=== PATIENT | male | born 1995 | race Caucasian/White ===

== ENCOUNTER 2016-12-09 11:36 | Emergency (ER) | payer MEDICAID ==
[2016-12-09 12:44] VITALS: BP 135/75
[2016-12-10 13:56] LABS: Herpes Simplex Virus I IgG AB Negative (Negative); Herpes Simplex Virus II IgG AB Negative (Negative)
[2016-12-11 01:06] LABS: Herpes Simplex 1&2 IgM IFA Negative (Negative)
--- NOTE | 2017-01-09 23:13 | UC ---
Alba Glaser Matthew, scribed for Disha Jacobson MD on 12/09/16 at 1226 . Complaint Male HPI - HPI Summary HPI Summary: A 21 y/o male presents to with sores in the pubic region since 12/06/16 that worsened today. Associated symptoms include body aches. The spots are painful and itchy to the touch. He denies urinary symptoms, increased urgency, fever, cough, and penile discharge. He's also c/o of blister sores in his mouth and has not had these in the past. The patient smokes 2-3 cigarettes per day. His last tetanus shot was 2 years ago. He also had an embedded tick on his scrotum in October. No Hx of herpes. - History of Current Complaint Chief Complaint: UCGU Stated Complaint: PERSONAL Hx Obtained From: Patient Onset/Duration: Gradual Onset, Lasting Days, Still Present Timing: Constant Severity Initially: Mild Severity Currently: Mild Location: Penis Aggravating Factor(s): Palpation Alleviating Factor(s): Nothing Associated Signs And Symptoms: Negative: Penile Swelling, Penile Discharge - Allergies/Home Medications Allergies/Adverse Reactions: Allergies Allergy/AdvReac Type Severity Reaction Status Date / Time Albuterol Allergy Blisters Verified 04/08/16 12:10 PMH/Surg Hx/FS Hx/Imm Hx Endocrine History Of: Denies: Diabetes Respiratory History Of: Denies: Asthma - Surgical History Surgical History: Yes Surgery Procedure, Year, and Place: right collar bone was shattered/ reconstruction done when pt was 15 years old - Family History Known Family History: Positive: Other - cancer Negative: Diabetes - Social History Alcohol Use: Occasionally Substance Use Type: None Smoking Status (MU): Light Every Day Tobacco Smoker Amount Used/How Often: 1/2PPD Household Exposure Type: Cigarettes Review of Systems Constitutional: Negative Skin: Negative Eyes: Negative ENT: Negative Respiratory: Negative Cardiovascular: Negative Gastrointestinal: Negative Genitourinary: Other - sores in the gential region Motor: Negative Neurovascular: Negative Musculoskeletal: Myalgia - body aches Neurological: Negative Psychological: Negative All Other Systems Reviewed And Are Negative: Yes Physical Exam Triage Information Reviewed: Yes Appearance: Well-Nourished Vital Signs: Initial Vital Signs Temp 99.6 F 12/09/16 12:02 Pulse 87 12/09/16 12:02 Resp 18 12/09/16 12:02 BP 135/75 12/09/16 12:02 Pulse Ox 98 12/09/16 12:02 Vital Signs Reviewed: Yes Eyes: Positive: Conjunctiva Clear ENT: Positive: Other: - ulcers around the gum line of teeth number 10&11 Neck: Positive: Supple, Nontender Respiratory: Positive: No respiratory distress, No accessory muscle use Cardiovascular: Positive: RRR, No Murmur, Pulses Normal Abdomen Description: Positive: Nontender, No Organomegaly, Soft Musculoskeletal: Positive: Strength Intact, ROM Intact Neurological Exam: Normal - nonfocal, grossly intact Psychological Exam: Normal - conversing easily and appropriately Complaint Male Course/Dx - Course Course Of Treatment: Reviewed need for f/u and coa. Some cellulitis, sores unclear - will rx for genital warts (likely). Rx valtrex as well (will check antibodies in the meantime). Questions answered as posed - Differential Dx/Diagnosis Provider Diagnoses: genital sores / wart. cellulitis Discharge - Discharge Plan Condition: Stable Disposition: HOME Prescriptions: DOXYcycline CAP(*) [DOXYcycline 100MG CAP(*)] 100 mg PO BID #14 cap Podofilox [Condylox] 0.5 % EX BID #1 tube ValACYclovir (*) [Valtrex 1 GM(*)] 1 gm PO BID #20 tab Patient Education Materials: Genital Warts (ED), Cellulitis (ED) Forms: *Work Release Referrals: Mark JOE,Jeffrey Bruno [Primary Care Provider] - Additional Instructions: Follow up with your primary care physician - please schedule follow up for 1-2 weeks. Seek medical attention sooner for worse or new problems. Avoid sexual relations until symptoms gone, results available, and partner has been checked. You have blood tests for herpes virus (1 and 2) pending. Lesions are unclear but suspicious for a wart-causing virus. This can be treated, but important that you be rechecked by primary care provider. What are cold sores? Cold sores are painful blisters that form on or near the lips and inside the mouth. They are caused by an infection with a virus called "herpes simplex virus." There are two types of herpes virus. Type 1 causes most cases of cold sores. Type 2, also called genital herpes, usually affects the penis or vagina. EDUCATIONAL MATERIAL Cold sores are also known as fever blisters. What are the symptoms of cold sores? The symptoms are different depending on whether it is the first time a person is getting cold sores. The first attack of cold sores usually happens during childhood. The first time a person gets cold sores, the symptoms can include: Painful blisters on the lips, mouth, nose, or throat, which eventually pop and form scabs (picture 1) Mouth and throat pain Swelling in the neck Fever, body aches, and feeling ill After the first time, pain and blisters can come back, but the other symptoms do not usually happen again. Plus, the symptoms are usually milder and don't last as long. When symptoms first occur, they can last 10 to 14 days. Later, if they come back , they can last 8 days or less. Some people can tell when their cold sores are going to come back. They feel pain, burning, tingling, or itching on their lips about a day before blisters form. People sometimes confuse cold sores with canker sores. But canker sores are different. Canker sores are painful red or white sores, but they do not usually form blisters or scab over. Canker sores can form in your mouth and on your tongue. Doctors do not know what causes canker sores. Why did I get a cold sore? The virus that causes cold sores spreads easily from person to person. You might have caught it from an infected person if the 2 of you shared a fork or knife, kissed, or had some other type of close contact. People who give oral sex to people with genital herpes can get cold sores on their mouth. Should I see a doctor or nurse? See your doctor or nurse if your symptoms are severe or if they keep you from swallowing fluids. Is there a test for cold sores? Yes, your doctor or nurse can take some fluid from a cold sore and check it for the herpes virus. But that is not usually necessary. In most cases, doctors can diagnose cold sores just by looking at them. How are cold sores treated? Most people need treatment the first time they have cold sores. But people who have had cold sores before or who have mild symptoms do not always need treatment. For those who do need treatment, it can come in two forms: Some treatments help the body fight the herpes virus. These are called "antiviral medicines." They reduce symptoms and shorten the amount of time symptoms last. These medicines work best if they are started as soon as possible after symptoms begin. Most people do not need these medicines. Some treatments treat just the pain and discomfort of cold sores without affecting the virus. These treatments include pain-relieving pills and gels that go on the mouth. Many of these treatments are sold without a prescription. Treatments can help ease the symptoms of cold sores, but no treatment can cure cold sores for good. Once you have the virus that causes cold sores, you will have it for the rest of your life. That means that cold sores can keep coming back. Luckily, symptoms usually get milder with time. Is there anything I can do on my own to feel better? Some people find that pain goes down if they suck on ice or popsicles. Can cold sores be prevented? If you have frequent, painful outbreaks of cold sores, your doctor or nurse might give you an antiviral medicine to take every day to prevent new symptoms. But most people do not need this kind of treatment. To protect other people, when you have cold sores do NOT: Kiss anyone Share forks, knives, spoons, glasses, towels, lip balm, or razors Give anyone oral sex The documentation as recorded by the Alba reeves Matthew accurately reflects the service I personally performed and the decisions made by me, Disha Jacobson MD.
== END 2016-12-09 12:51 | disposition home or self-care (01) ==
LOC: UCEAST 11:36
DX: N50.9 Disorder of male genital organs, unspecified (principal); A63.0 Anogenital (venereal) warts; N49.9 Inflammatory disorder of unspecified male genital organ; Z88.8 Allergy status to other drugs, medicaments and biological substances; F17.210 Nicotine dependence, cigarettes, uncomplicated
CPT/HCPCS: 86694; 86695; 86696; 99212; G0463

== ENCOUNTER 2017-02-05 17:08 | Emergency (ER) | payer MEDICAID ==
[2017-02-05 17:23] VITALS: BP 106/71
[2017-02-05] MEDS ORDERED: Ibuprofen TAB* 600 MG PO ONE (17:40)
--- NOTE | 2017-02-05 17:51 | UC ---
Hand/Wrist HPI - HPI Summary HPI Summary: Pain on R hand around 4th and 5th knuckles since falling down 4-5 stairs while holding something about 2.5 hours ago. Swelling, stiffness, no prior fx or surgery. - History Of Current Complaint Chief Complaint: UCUpperExtremity Stated Complaint: HAND INJURY Time Seen by Provider: 02/05/17 17:31 Hx Obtained From: Patient ?: No Onset/Duration: Sudden Onset Severity Initially: Moderate Severity Currently: Moderate Character Of Pain: Dull, Aching Aggravating Factor(s): Movement Alleviating: Elevation Associated Signs And Symptoms: Positive: Swelling Related History: Dominant Hand Right - Allergies/Home Medications Allergies/Adverse Reactions: Allergies Allergy/AdvReac Type Severity Reaction Status Date / Time Albuterol Allergy Blisters Verified 02/05/17 17:23 PMH/Surg Hx/FS Hx/Imm Hx Previously Healthy: Yes - Surgical History Surgical History: Yes Surgery Procedure, Year, and Place: right collar bone was shattered/ reconstruction done when pt was 15 years old - Family History Known Family History: Positive: None, Other - cancer Negative: Diabetes - Social History Occupation: Employed Full-time Lives: With Family Alcohol Use: Occasionally Substance Use Type: None Smoking Status (MU): Current Every Day Smoker Amount Used/How Often: 1/2PPD Household Exposure Type: Cigarettes Review of Systems Constitutional: Negative Skin: Negative Eyes: Negative ENT: Negative Respiratory: Negative Cardiovascular: Negative Gastrointestinal: Negative Genitourinary: Negative Motor: Negative Neurovascular: Negative Musculoskeletal: Arthralgia, Decreased ROM, Edema Neurological: Negative Psychological: Negative All Other Systems Reviewed And Are Negative: Yes Physical Exam Triage Information Reviewed: Yes Appearance: Well-Appearing, No Pain Distress, Well-Nourished Vital Signs: Initial Vital Signs Temp 98.8 F 02/05/17 17:18 Pulse 87 02/05/17 17:18 Resp 12 02/05/17 17:18 BP 106/71 02/05/17 17:18 Pulse Ox 100 02/05/17 17:18 Vital Signs Reviewed: Yes Eye Exam: Normal Eyes: Positive: Conjunctiva Clear ENT Exam: Normal ENT: Positive: Normal ENT inspection, Hearing grossly normal, Pharynx normal, TMs normal Dental Exam: Normal Neck exam: Normal Neck: Positive: Supple, Nontender, No Lymphadenopathy Respiratory Exam: Normal Respiratory: Positive: Chest non-tender, Lungs clear, Normal breath sounds, No respiratory distress, No accessory muscle use Cardiovascular Exam: Normal Cardiovascular: Positive: RRR, No Murmur Musculoskeletal: Positive: ROM Limited @ - R apn, Edema @ - with tenderness, over R 4th and 5th MCPs Neurological Exam: Normal Neurological: Positive: Alert Psychological Exam: Normal Skin Exam: Normal Hand/Wrist Course/Dx - Differential Dx/Diagnosis Provider Diagnoses: R hand contusion. R hand sprain. R wrist sprain Discharge - Discharge Plan Condition: Stable Disposition: HOME Patient Education Materials: Hand Sprain (ED), Wrist Sprain (ED) Forms: *Gen. Provider Communication, *Work Release Referrals: Mariaa Martell MD [Medical Doctor] - 2 Weeks
--- NOTE | 2017-02-05 17:57 | RAD ---
INDICATION: Pain overlying the fourth and fifth metacarpal phalangeal joints after a fall COMPARISON: None. TECHNIQUE: 4 views of the right hand and 3 views of the right wrist were obtained. FINDINGS: The adequately corticated bones are in normal alignment. No significant focal osseous abnormality or fracture is seen. Joint spaces appear maintained. IMPRESSION: No radiographically apparent fracture or dislocation of the right hand or wrist. If the patient's symptoms persist, follow-up imaging is recommended.
== END 2017-02-05 18:15 | disposition home or self-care (01) ==
LOC: UCEAST 17:08
DX: S60.221A Contusion of right hand, initial encounter (principal); S63.91XA Sprain of unspecified part of right wrist and hand, initial encounter; W10.9XXA Fall (on) (from) unspecified stairs and steps, initial encounter; Y93.9 Activity, unspecified; Y92.9 Unspecified place or not applicable; Y99.9 Unspecified external cause status; Z72.0 Tobacco use
CPT/HCPCS: 99212; A9270-GY; G0463

== ENCOUNTER → 2018-08-25 12:08 | Emergency (ER) | payer OTHER ==
[~2018-08-25 12:08] MED LIST: Ketorolac INJ* 30 MG/ML 1 ML VIAL IV PUSH ONE; Metoclopramide IV* 5 MG/ML 2 ML VIAL IV ONE; NS 0.9% 1000 ML** 1,000 ML IV ONE; diPHENhydraMINE IV* 50 MG/ML 1 ml VIAL (BENADRYL) IV ONE
--- NOTE | 2018-08-25 13:00 | ED ---
Headache - HPI Summary HPI Summary: A 22 y/o male presents to [facility] with a chief complaint of a headache since 07: 30 08/25/18. Per triage note, "Pt woke up this AM with c/o base of neck pain, headache, dizziness and slurring speech per pts GF. Pt and GF deny injury. During assessment, pt does not have slurred speech or any difficulty with memory. Pt reports severe headache with no changes in vision, slight dizziness upon moving, nausea. Pt states that it feels like a migraine. Took 2x 800mg Ibuprofen this AM." He rates his pain as an 8/10 in severity. He reports that this is his worst headache ever. He denies any trauma or fall. Per patient's girlfriend, the patient had trouble remembering his date at triage. The patient claims that he does not usually get migraines. The patient denies cough. He reports a head bleed due to playing football in high school. He smokes 1/2 ppd but denies drug use. He is allergic to albuterol claiming that he gets blisters. - History Of Current Complaint Chief Complaint: EDHeadache Stated Complaint: NECK/HEAD PAIN/DIZZINESS/SLURRED SPEECH Time Seen by Provider: 08/25/18 12:44 Hx Obtained From: Patient, Family/Motorcycle Builder - girlfriend Onset/Duration: Sudden Onset, Started hours ago, Still Present Initially Headache Was: "Worst Headache Ever", Initial Pain Scale(0-10)= - 8, Severe Currently Pain Is: Current Pain Scale(0-10)= - 8, Severe Timing: Constant, Hours Character: Migraine Location of Headache: Diffuse Aggravating Factor: Other - positive: movement Allevating Factors: Nothing Associated Signs And Symptoms: Negative - fever, visual changes, Nausea, Neck Pain - Allergies/Home Medications Allergies/Adverse Reactions: Allergies Allergy/AdvReac Type Severity Reaction Status Date / Time albuterol Allergy See Comment Verified 08/25/18 12:16 Home Medications: Home Medications NK [No Home Medications Reported] 08/25/18 [History Confirmed 08/25/18] PMH/Surg Hx/FS Hx/Imm Hx Endocrine/Hematology History: Denies: Hx Diabetes Respiratory History: Denies: Hx Asthma, Hx Seasonal Allergies Sensory History: Reports: Hx Contacts or Glasses Opthamlomology History: Reports: Hx Contacts or Glasses - Surgical History Surgery Procedure, Year, and Place: right collar bone was shattered/ reconstruction done when pt was 15 years old - Immunization History Date of Tetanus Vaccine: UTD Date of Influenza Vaccine: unknown Infectious Disease History: No Infectious Disease History: Denies: Traveled Outside the [place] in Last 30 Days - Family History Known Family History: Positive: Other - cancer Negative: Diabetes - Social History Alcohol Use: Occasionally Substance Use Type: Reports: None Smoking Status (MU): Current Every Day Smoker Amount Used/How Often: 1/2PPD Review of Systems Negative: Fever Eyes: Negative - visual changes Negative: Cough Positive: Nausea Positive: Other - Positive: neck pain Neurological: Other - positive: dizziness Positive: Headache All Other Systems Reviewed And Are Negative: Yes Physical Exam - Summary Physical Exam Summary: GENERAL: Patient is a well-developed and nourished M who is lying comfortable in the stretcher. Patient is not in any acute respiratory distress. HEAD AND FACE: Normocephalic EYES: PERRLA, EOMI x 2. EARS: Hearing grossly intact. MOUTH: Oropharynx within normal limits. NECK: Supple, trachea is midline, no adenopathy, no JVD, no carotid bruit. CHEST: Symmetric, no tenderness at palpation LUNGS: Clear to auscultation bilaterally. No wheezing or crackles. CVS: Regular rate and rhythm, S1 and S2 present, no murmurs or gallops appreciated. ABDOMEN: Soft, non-tender. Bowel sounds are normal. No abdominal abnormal pulsations. EXTREMITIES: Full ROM in all major joints, no edema, no cyanosis or clubbing. NEURO: Alert and oriented x 3. No acute neurological deficits. Speech is normal and follows commands. SKIN: Dry and warm Neuro exam extended: Cranial nerves II-XII grossly intact, no dysmetria finger to nose, nml heel to myles Triage Information Reviewed: Yes Vital Signs On Initial Exam: Initial Vitals Temp Pulse Resp BP Pulse Ox 98.1 F 82 19 134/96 99 08/25/18 12:11 08/25/18 12:11 08/25/18 12:11 08/25/18 12:11 08/25/18 12:11 Vital Signs Reviewed: Yes - Aylin Coma Scale Best Eye Response: 4 - Spontaneous Best Motor Response: 6 - Obeys Commands Best Verbal Response: 5 - Oriented Coma Scale Total: 15 Diagnostics - Vital Signs Vital Signs Temp Pulse Resp BP Pulse Ox 08/25/18 12:11 98.1 F 82 19 134/96 99 - Laboratory Result Diagrams: 08/25/18 13:04 08/25/18 13:04 Lab Statement: Any lab studies that have been ordered have been reviewed, and results considered in the medical decision making process. - CT Brain CT Interpretation Completed By: Radiologist Summary of CT Findings: No acute intracranial pathology. ED physician has reviewed this imaging report. Re-Evaluation - Re-Evaluation Second Eval Re-Evaluation Time: 14:00 Change: Improved Comment: Patient is feeling better. I explained that even though he is feeling better that does not rule out a subarachnoid hemorrhage or meningitis He refused a lumbar puncture. First Eval Re-Evaluation Time: 13:41 Change: Unchanged Comment: Patient still feels the same. Third Eval Re-Evaluation Time: 14:37 Change: Unchanged Comment: Patient still reports a GOOD. He will be given toradol. Headache Course/Dx - Course Course Of Treatment: A 22 y/o male presents to [facility] with a chief complaint of a headache since 07:30 08/25/18. Workup is unremarkable. The physical exam was unremarkable. In the ED course he was given Reglan IV, Benadryl IV and Toradol IV. His Brain CT was negative. Lab results obtained and are WNL. Influenza A and Influenza B are negative. Upon re-eval patient is feeling better. I explained that even though he is feeling better that does not rule out a subarachnoid hemorrhage or meningitis. He refused a lumbar puncture. I discussed results with patient and he reports feeling better. He is hemodynamically stable and safe for discharge. Strict return precautions given and he will otherwise follow up with his PCP. The patient will be discharged. He is agreeable with this plan. - Diagnoses Provider Diagnoses: Headache Discharge - Sign-Out/Discharge Documenting (check all that apply): Patient Departure - DC Patient Received Moderate/Deep Sedation with Procedure: No - Discharge Plan Condition: Stable Disposition: HOME Referrals: Mark JOE,Jeffrey Bruno [Primary Care Provider] - (1-3 days) Additional Instructions: Follow up with your primary care physician in 1-3 days. RETURN TO THE EMERGENCY DEPARTMENT FOR CHANGING OR WORSENING SYMPTOMS. - Billing Disposition and Condition Condition: STABLE Disposition: Home - Attestation Statements Document Initiated by Scribe: Yes Documenting Scribe: Frandy Gongora Provider For Whom Scribe is Documenting (Include Credential): Kodi Gould MD Scribe Attestation: I, Frandy Gongora, scribed for Kodi Gould MD on 08/25/18 at 1758. Scribe Documentation Reviewed: Yes Provider Attestation: The documentation as recorded by the haideribeFrandy accurately reflects the service I personally performed and the decisions made by me, Deya Gould MD Status of Scribe Document: Viewed
[2018-08-25 13:13] LABS: ABS Basophils 0 10^3/ul (0-0.2); ABS Eosinophils 0 10^3/ul (0-0.6); ABS Lymphocytes 0.9 10^3/ul (1.0-4.8); ABS Monocytes 0.5 10^3/ul (0-0.8); ABS Neutrophils 10.5 10^3/ul (1.5-7.7); ABS Nucleated RBC 0 10^3/ul; Eosinophil % 0.1 %; Hematocrit 46 % (42-52); Hemoglobin 15.7 g/dl (14.0-18.0); Lymphocyte % 7.3 %; Mean Corpuscular HGB Conc 34 g/dl (31-36); Mean Corpuscular Hemoglobin 33 pg (27-31); Mean Corpuscular Volume 96 fL (80-94); Mean Platelet Volume 9.2 fL (7.4-10.4); Nucleated Red Blood Cells % 0; Platelet Count 181 10^3/ul (150-450); Red Cell Distribution Width 13 % (10.5-15); White Blood Count 11.9 10^3/ul (3.5-10.8)
[2018-08-25 13:21] LABS: Activated Partial Thrombo Time 31.3 seconds (26.0-36.3); INR 0.91 (0.77-1.02)
[2018-08-25 13:32] LABS: Albumin 4.7 g/dL (3.2-5.2); Albumin/Globulin Ratio 1.8 (1-3); BUN/Creatinine Ratio 18.2 (8-20); CRP High Sensitivity 2.94 mg/L (<2.00); Calcium 9.8 mg/dL (8.6-10.3); EGFR African American 182.6 (>60); EGFR Non-African American 150.9 (>60); Globulin 2.6 g/dL (2-4); Potassium 4.2 mmol/L (3.5-5.0); Total Bilirubin 0.4 mg/dL (0.2-1.0); Total Protein 7.3 g/dL (6.4-8.9)
[2018-08-25 14:27] LABS: Influenza A Molecular NEGATIVE (Negative); Influenza B Molecular NEGATIVE (Negative)
[2018-08-25 14:50] VITALS: BP 119/66
[2018-08-25 14:50] LABS: Erythrocyte Sed Rate 4 mm/Hr (0-14)
== END | disposition home or self-care (01) ==
LOC: ED 12:08
DX: R51 Headache (principal); F17.210 Nicotine dependence, cigarettes, uncomplicated
CPT/HCPCS: 36415; 70450; 80053; 85025; 85610; 85652; 85730; 86141; 96361; 96374; 96375; 99283; J1200; J1885; J2765

== ENCOUNTER 2018-08-26 05:24 | Emergency (ER) | payer OTHER ==
[2018-08-26] MEDS ORDERED: LORazepam INJ* 2 MG/ML 1 ML VIAL IV PUSH ONE (06:16)
[2018-08-26] MEDS ORDERED: Ketorolac INJ* 30 MG/ML 1 ML VIAL IV PUSH ONE (06:16)
[2018-08-26] MEDS ORDERED: NS 0.9% 1000 ML** 1,000 ML IV ONE (06:17)
--- NOTE | 2018-08-26 06:17 | ED ---
Headache - HPI Summary HPI Summary: Pt. is a 22 y.o male who presents to the ER for headache. Patient was seen in the ER yesterday for similar symptoms. Patient denies history of migraines or headaches. Patient states headache started yesterday shortly after waking up. Seen in ER yesterday and had blood work and a CAT scan which were unremarkable. ER physician did discuss lumbar puncture to rule out subarachnoid which patient declined. Patient was feeling better at time of discharge after migraine cocktail. Patient states headache returned today and presents for reevaluation. Patient notes that headache starts in his neck and radiates up his scalp to his eyes. He notes he started having a lot of neck tension recently. He denies any injuries or falls. He denies numbness, tingling, weakness, vision changes, fever, sore throat, cough, photophobia, nausea or vomiting. Patient otherwise denies past medical history. Symptoms are moderate in severity. - History Of Current Complaint Chief Complaint: EDHeadache Stated Complaint: HEADACHE Time Seen by Provider: 08/26/18 05:52 Hx Obtained From: Patient - Allergies/Home Medications Allergies/Adverse Reactions: Allergies Allergy/AdvReac Type Severity Reaction Status Date / Time albuterol Allergy See Comment Verified 08/26/18 05:39 PMH/Surg Hx/FS Hx/Imm Hx Previously Healthy: Yes Endocrine/Hematology History: Denies: Hx Diabetes Respiratory History: Denies: Hx Asthma, Hx Seasonal Allergies Sensory History: Reports: Hx Contacts or Glasses Opthamlomology History: Reports: Hx Contacts or Glasses - Surgical History Surgery Procedure, Year, and Place: right collar bone was shattered/ reconstruction done when pt was 15 years old - Immunization History Date of Tetanus Vaccine: UTD Date of Influenza Vaccine: unknown Infectious Disease History: No Infectious Disease History: Denies: Traveled Outside the [place] in Last 30 Days - Family History Known Family History: Positive: Other - cancer Negative: Diabetes - Social History Occupation: Employed Full-time Lives: With Family Alcohol Use: Occasionally Substance Use Type: Reports: None Smoking Status (MU): Current Every Day Smoker Amount Used/How Often: 1/2PPD Review of Systems Constitutional: Negative Negative: Fever, Chills Eyes: Negative ENT: Negative Cardiovascular: Negative Respiratory: Negative Gastrointestinal: Negative Negative: Vomiting, Nausea Positive: Other - neck pain Skin: Negative Positive: Headache. Negative: Weakness, Paresthesia, Numbness, Syncope, Slurred Speech All Other Systems Reviewed And Are Negative: Yes Physical Exam Triage Information Reviewed: Yes Vital Signs On Initial Exam: Initial Vitals Temp Pulse Resp BP Pulse Ox 97.4 F 80 16 138/92 98 08/26/18 05:35 08/26/18 05:35 08/26/18 05:35 08/26/18 05:35 08/26/18 05:35 Vital Signs Reviewed: Yes Appearance: Positive: Well-Appearing - Pt. lying in bed in NAD. S.O. present. Skin: Positive: Warm, Dry Head/Face: Positive: Normal Head/Face Inspection Eyes: Positive: Normal, EOMI Neck: Positive: Supple, Other: - No nuchal rigidity. Pain along right trapizius muscle. Respiratory/Lung Sounds: Positive: Clear to Auscultation, Breath Sounds Present Cardiovascular: Positive: Normal, RRR Musculoskeletal: Positive: Normal, Strength/ROM Intact, Other - 5/5 strength in bilateral UEs and LEs. Neurological: Positive: Normal, Alert, Oriented to Person Place, Time, CN Intact II-III, Normal Gait, Finger to Nose - normal, Facial Symmetry, Speech Normal. Negative: Slurred Speech, Pronator Drift Present Psychiatric: Positive: Affect/Mood Appropriate - [place] Coma Scale Best Eye Response: 4 - Spontaneous Best Motor Response: 6 - Obeys Commands Best Verbal Response: 5 - Oriented Coma Scale Total: 15 Diagnostics - Vital Signs Vital Signs Temp Pulse Resp BP Pulse Ox 08/26/18 06:00 81 98 08/26/18 05:43 71 122/81 98 08/26/18 05:42 77 98 08/26/18 05:35 97.4 F 80 16 138/92 98 - Laboratory Result Diagrams: 08/26/18 06:24 08/26/18 06:24 Lab Statement: Any lab studies that have been ordered have been reviewed, and results considered in the medical decision making process. Headache Course/Dx - Course Course Of Treatment: Patient presenting for ongoing headache. He has no neurological deficits on exam. Negative head CT yesterday. Patient's headache seems to be consistent with a tension headache. He was given a dose of Ativan for muscle relaxation and Toradol. Basic blood work is unremarkable including normal CRP. On reexamination patient states he is feeling much better and would like to be discharged home. Prescription for Flexeril and naproxen given. Advised to apply warm compresses to neck. To call family doctor today for close follow-up appointment. Return to the ER if symptoms change or worsen. Patient understands and agrees with plan. - Diagnoses Differential Diagnosis/HQI/PQRI: Epidural Hematoma, Meningitis, Migraine, Tension Headache, Viral Syndrome Provider Diagnoses: Tension headache Discharge - Sign-Out/Discharge Documenting (check all that apply): Patient Departure Patient Received Moderate/Deep Sedation with Procedure: No - Discharge Plan Condition: Improved Disposition: HOME Prescriptions: Cyclobenzaprine TAB* [Flexeril 10 MG TAB*] 10 mg PO TID PRN #9 tab PRN Reason: Pain Naproxen [Naproxen 500 mg tab] 500 mg PO BID #20 tablet Patient Education Materials: Tension Headache (ED), Muscle Spasm (ED) Forms: *School Release Referrals: Mark JOE,Jeffrey Bruno [Primary Care Provider] - Additional Instructions: Call PCP today to schedule a follow up appointment Take medication as directed Apply warm compresses Gentle massage Return to ER if symptoms change or worsen - Billing Disposition and Condition Condition: IMPROVED Disposition: Home
[2018-08-26 06:29] LABS: ABS Basophils 0 10^3/ul (0-0.2); ABS Eosinophils 0.1 10^3/ul (0-0.6); ABS Lymphocytes 1.6 10^3/ul (1.0-4.8); ABS Monocytes 0.8 10^3/ul (0-0.8); ABS Neutrophils 8.5 10^3/ul (1.5-7.7); ABS Nucleated RBC 0 10^3/ul; Eosinophil % 0.9 %; Hematocrit 42 % (42-52); Hemoglobin 14.7 g/dl (14.0-18.0); Lymphocyte % 14.5 %; Mean Corpuscular HGB Conc 35 g/dl (31-36); Mean Corpuscular Hemoglobin 34 pg (27-31); Mean Corpuscular Volume 96 fL (80-94); Mean Platelet Volume 9.3 fL (7.4-10.4); Nucleated Red Blood Cells % 0; Platelet Count 187 10^3/ul (150-450); Red Blood Count 4.39 10^6/ul (4.00-5.40); Red Cell Distribution Width 13 % (10.5-15); White Blood Count 11.1 10^3/ul (3.5-10.8)
[2018-08-26 06:47] LABS: Albumin 4.3 g/dL (3.2-5.2); Albumin/Globulin Ratio 1.8 (1-3); BUN/Creatinine Ratio 16.4 (8-20); C Reactive Protein 3.33 mg/L (<8.01); Calcium 9.3 mg/dL (8.6-10.3); EGFR African American 179.5 (>60); EGFR Non-African American 148.3 (>60); Globulin 2.4 g/dL (2-4); Potassium 4.2 mmol/L (3.5-5.0); Total Bilirubin 0.3 mg/dL (0.2-1.0); Total Protein 6.7 g/dL (6.4-8.9)
[2018-08-26 08:02] VITALS: BP 113/71
== END 2018-08-26 08:02 | disposition home or self-care (01) ==
LOC: ED 05:24
DX: G44.209 Tension-type headache, unspecified, not intractable (principal); Z88.8 Allergy status to other drugs, medicaments and biological substances; F17.200 Nicotine dependence, unspecified, uncomplicated
CPT/HCPCS: 36415; 80053; 85025; 86140; 96374; 96375; 99282; J1885; J2060

== ENCOUNTER 2018-09-02 07:52 | Emergency (ER) | payer OTHER ==
[2018-09-02] MEDS ORDERED: NS 0.9% 1000 ML** 1,000 ML IV ONE (08:11)
[2018-09-02] MEDS ORDERED: diPHENhydraMINE PO* 25 MG PO ONE (08:11)
[2018-09-02] MEDS ORDERED: PROCHLORPERAZINE INJ 5 MG/ML 2 ML VIAL IV ONE (08:11)
--- NOTE | 2018-09-02 08:12 | ED ---
Headache - HPI Summary HPI Summary: 22-year-old male presents with headache today. He states that he woke up with a headache. He states he's had this headache last week before. not worst headache of his life. He admits to nausea and vomiting. He admits to photophobia. He states the headache is located the base of the skull and admits to neck stiffness. No fevers. No cough. No recent illness. he denies any chest or shortness breath. States he does not have a neurology follow-up in september. He states he tried naproxen and Flexeril at home with no relief. - History Of Current Complaint Chief Complaint: EDHeadache Stated Complaint: HEADACHE Time Seen by Provider: 09/02/18 07:58 - Allergies/Home Medications Allergies/Adverse Reactions: Allergies Allergy/AdvReac Type Severity Reaction Status Date / Time albuterol Allergy See Comment Verified 09/02/18 08:50 PMH/Surg Hx/FS Hx/Imm Hx Endocrine/Hematology History: Denies: Hx Diabetes Respiratory History: Denies: Hx Asthma, Hx Seasonal Allergies Sensory History: Reports: Hx Contacts or Glasses Opthamlomology History: Reports: Hx Contacts or Glasses - Surgical History Surgery Procedure, Year, and Place: right collar bone was shattered/ reconstruction done when pt was 15 years old - Immunization History Date of Tetanus Vaccine: UTD Date of Influenza Vaccine: unknown Immunizations Up to Date: Yes Infectious Disease History: No Infectious Disease History: Denies: Traveled Outside the [place] in Last 30 Days - Family History Known Family History: Positive: Other - cancer Negative: Diabetes - Social History Alcohol Use: Occasionally Substance Use Type: Reports: None Smoking Status (MU): Current Every Day Smoker Amount Used/How Often: 1/2PPD Review of Systems Negative: Fever Negative: Chest Pain Negative: Shortness Of Breath Positive: Vomiting, Nausea Positive: Headache All Other Systems Reviewed And Are Negative: Yes Physical Exam Triage Information Reviewed: Yes Vital Signs On Initial Exam: Initial Vitals Temp Pulse Resp BP Pulse Ox 98.9 F 74 16 144/88 100 09/02/18 07:53 09/02/18 07:53 09/02/18 07:53 09/02/18 07:53 09/02/18 07:53 Vital Signs Reviewed: Yes Appearance: Positive: Well-Appearing Skin: Positive: Warm, Dry Head/Face: Positive: Normal Head/Face Inspection Eyes: Positive: Normal, EOMI, JUVE, Conjunctiva Clear ENT: Positive: Normal ENT inspection, Pharynx normal, TMs normal Respiratory/Lung Sounds: Positive: Clear to Auscultation, Breath Sounds Present Cardiovascular: Positive: Normal, RRR Abdomen Description: Positive: Nontender, Soft Bowel Sounds: Positive: Present Musculoskeletal: Positive: Normal Neurological: Positive: Sensory/Motor Intact, Alert, Oriented to Person Place, Time, CN Intact II-III Psychiatric: Positive: Normal Diagnostics - Vital Signs Vital Signs Temp Pulse Resp BP Pulse Ox 09/02/18 07:53 98.9 F 74 16 144/88 100 - Laboratory Result Diagrams: 09/02/18 08:31 09/02/18 08:31 Lab Statement: Any lab studies that have been ordered have been reviewed, and results considered in the medical decision making process. Re-Evaluation - Re-Evaluation First Eval Re-Evaluation Time: 09:49 Change: Improved Comment: headache improved Headache Course/Dx - Course Course Of Treatment: 22-year-old male presents with headache today. He states that he woke up with a headache. He states he's had this headache last week before. not worst headache of his life. He admits to nausea and vomiting. He admits to photophobia. He states the headache is located the base of the skull and admits to neck stiffness. No fevers. on exam has normal neuro exam. no focal deficit. wbc normal. crp normal. flu neg. gave compazine, fluids, and benadryl and feels better. will discharge with zofran. told to follow up with neurology. patient understand and agrees with plan. - Diagnoses Differential Diagnosis/HQI/PQRI: Migraine, Tension Headache, Viral Syndrome Provider Diagnoses: Headache Discharge - Sign-Out/Discharge Documenting (check all that apply): Patient Departure Patient Received Moderate/Deep Sedation with Procedure: No - Discharge Plan Condition: Good Disposition: HOME Prescriptions: Ondansetron ODT TAB* [Zofran 4 MG Odt TAB*] 4 mg PO Q6H PRN #12 tab.odt PRN Reason: Nausea Patient Education Materials: Acute Headache (ED) Referrals: Mark JOE,Jeffrey Bruno [Primary Care Provider] - Additional Instructions: take ibuprofen or tyenlol for pain every 6 hours, can try Excedrin Take zofran every 6 hours for nausea as needed follow up with neurology Return to ED if develop any new or worsening symptoms - Billing Disposition and Condition Condition: GOOD Disposition: Home
[2018-09-02 08:45] LABS: ABS Basophils 0 10^3/ul (0-0.2); ABS Eosinophils 0.2 10^3/ul (0-0.6); ABS Lymphocytes 1.6 10^3/ul (1.0-4.8); ABS Monocytes 0.7 10^3/ul (0-0.8); ABS Neutrophils 7.2 10^3/ul (1.5-7.7); ABS Nucleated RBC 0 10^3/ul; Eosinophil % 1.9 %; Hematocrit 45 % (42-52); Hemoglobin 15.3 g/dl (14.0-18.0); Lymphocyte % 16.5 %; Mean Corpuscular HGB Conc 34 g/dl (31-36); Mean Corpuscular Hemoglobin 33 pg (27-31); Mean Corpuscular Volume 97 fL (80-94); Mean Platelet Volume 9.3 fL (7.4-10.4); Nucleated Red Blood Cells % 0.1; Platelet Count 191 10^3/ul (150-450); Red Blood Count 4.65 10^6/ul (4.00-5.40); Red Cell Distribution Width 13 % (10.5-15); White Blood Count 9.8 10^3/ul (3.5-10.8)
[2018-09-02 09:00] LABS: Magnesium 2.1 mg/dL (1.9-2.7)
[2018-09-02 09:02] LABS: Influenza A Molecular NEGATIVE (Negative); Influenza B Molecular NEGATIVE (Negative)
[2018-09-02 09:42] LABS: Albumin 4.8 g/dL (3.2-5.2); Albumin/Globulin Ratio 1.8 (1-3); BUN/Creatinine Ratio 19.8 (8-20); C Reactive Protein 1.46 mg/L (<8.01); Calcium 9.7 mg/dL (8.6-10.3); EGFR African American 144.2 (>60); EGFR Non-African American 119.2 (>60); Globulin 2.7 g/dL (2-4); Potassium 4.4 mmol/L (3.5-5.0); Total Bilirubin 0.4 mg/dL (0.2-1.0); Total Protein 7.5 g/dL (6.4-8.9)
[2018-09-02 10:13] VITALS: BP 127/73
== END 2018-09-02 10:12 | disposition home or self-care (01) ==
LOC: ED 07:52
DX: R51 Headache (principal); F17.210 Nicotine dependence, cigarettes, uncomplicated
CPT/HCPCS: 36415; 80053; 83735; 85025; 86140; 96361; 96374; 99282; A9270-GY; J0780